=== PATIENT | female | born 1970 | race Caucasian/White ===

== ENCOUNTER 2021-04-20 14:07 | Emergency (ER) | payer MEDICARE, MEDICAID ==
[~2021-04-20] VITALS: Ht 165.1 cm; Wt 116.5 kg
[2021-04-20] MEDS ORDERED: ATOR40TA75 (14:43)
[2021-04-20] MEDS ORDERED: DULO1CAP6 (14:43)
[2021-04-20] MEDS ORDERED: TOPI100T9 (14:43)
[2021-04-20] MEDS ORDERED: LORA-674 (14:43)
[2021-04-20] MEDS ORDERED: CYCL-707 (14:43)
[2021-04-20] MEDS ORDERED: BASA100I (14:43)
[2021-04-20] MEDS ORDERED: PREG75CA2 (14:43)
[2021-04-20] MEDS ORDERED: METH-1164 (14:43)
[2021-04-20] MEDS ORDERED: LEVO50TA5 (14:43)
[2021-04-20] MEDS ORDERED: HYDR-3363 (14:43)
[2021-04-20] MEDS ORDERED: METF10004 (14:43)
--- OUTSIDE RECORDS SUMMARY | 2021-04-20 17:01 | CCD | Summary of Care ---
Author Author [facility] Organization [facility] Address Unknown Phone Unavailable Care Team Providers Care [employer] Fin[employer] Supervisor Name Role Phone Dilia Martínez PCP Reason for Referral * Consultation (Routine) Referred By Contact Referred To Contact Status Reason Specialty Diagnoses / Procedures Leslie Steen MD [address] [place] [phone] Email: [email or web address] Open Specialty Services Cardiology Diagnoses Required Bariatric surgery status Morbid obesity Hyperlipidemia, unspecified hyperlipidemia type LORENZO (obstructive sleep apnea) Electronically signed by Leslie Steen MD at Reason for Visit * Reason Comments Obesity Encounter Details Care Team Description Date Type Department Leslie Steen MD [address] [place] [id number] Bariatric surgery status (Primary Dx); Morbid obesity; BMI 40.0-44.9, adult; Uncontrolled type 2 diabetes mellitus with hyperglycemia; Hyperlipidemia, unspecified hyperlipidemia type; Osteoarthritis, unspecified osteoarthritis type, unspecified site; Fibromyalgia; Depression, unspecified depression type; Hypothyroidism, acquired; Vitamin D deficiency; LORENZO (obstructive sleep apnea) 02/05/2021 Telemedicine [facility] at [address] [phone] Allergies Comments Active Allergy Reactions Severity Noted Date Acetaminophen Hives 05/23/2019 Arm swelled up; patient states it is either pneumovax vaccine or the flu shot- not sure which because she had them both in the same arm. Also states she cannot have covid vaccine due to this per her MD. Influenza A (H1n1) 06/02/2020 Monovalent Vaccine Nausea Insulin Degludec Other (See 05/23/2019 Comments) R/t dexter surgery Nsaids 02/04/2021 Penicillins Hives 05/23/2019 documented as of this encounter (statuses as of 02/05/2021) Medications End Date Status Medication Sig Dispensed Refills Start Date Active Topiramate 100 MG Oral TAKE TWO 0 02 Tablet (TOPAMAX) TABLETS BY 0 MOUTH TWICE A DAY Active Levothyroxine Sodium 50 50 mcg every 0 MCG Oral Tablet morning 0 (SYNTHROID) before breakfast Active Atorvastatin Calcium 40 0 MG Oral Tablet (LIPITOR) 0 Active DULoxetine HCl 60 MG Oral Take 60 mg by 0 12/26 Capsule Delayed Release mouth daily 0 Particles (CYMBALTA) Active metFORMIN HCl 1000 MG 1,000 mg Two 0 01/23/20 2 Oral Tablet (GLUCOPHAGE) times daily 0 with meals Active BD Pen Needle Short U/F Use as 0 31G X 8 MM directed. 0 Active Basaglar KwikPen 100 45 Units 0 UNIT/ML Subcutaneous nightly 0 Solution Pen-injector Active Lisinopril 5 MG Oral Take 5 mg by 0 Tablet (PRINIVIL,ZESTRIL) mouth daily Active BD Assure BPM/Auto Arm Electronic 0 02 Cuff BP, one cuff 0 for daily BP readings Active Dexcom G6 Senior Devops Engineer Device 1 Device by 0 Does not 1 apply route Active hydrOXYzine HCl 25 MG every 8 0 09/03/19 2 Oral Tablet (ATARAX) (eight) hours 1 as needed for Anxiety Active Aspercreme Lidocaine 4 % PLACE 1 PATCH 0 03/11 External Patch ONTO THE SKIN 0 DAILY REMOVE AND DISCARD PATCH WITHIN 12 HOURS OR DIRECTED BY MD Active Loratadine 10 MG Oral every evening 0 09/16/19 2 Tablet (CLARITIN) 1 Active Methocarbamol 500 MG Oral Take 1,000 mg 0 08/25 Tablet (ROBAXIN) by mouth 1 nightly Active Misc. Devices Shower chair 0 to be used 1 daily to shower. Dx: 42 Active Tab-A-Satish/Beta Carotene Take 1 tablet 0 Oral Tablet by mouth daily Active Pregabalin 75 MG Oral Take 75 mg by 0 Capsule (LYRICA) mouth every evening Active UNABLE TO FIND Med Name: CBD 0 gummies, no THC Active UNABLE TO FIND Apply 0 topically as needed Med Name: Aspercreme topical - lidocaine is one ingredient for fibromyalgia pain Active Menthol, Topical Apply 0 Analgesic, (BIOFREEZE topically as ROLL-ON COLORLESS EX) needed (for fibromyalgia) 05/06/2021 Active Vitamin D Take 5 450 capsule 0 (Cholecalciferol) 25 MCG capsules by 1 (1000 UT) Oral Capsule mouth daily documented as of this encounter (statuses as of 02/05/2021) Active Problems Problem Noted Date Sleep-related breathing disorder 12/15/2020 Hypothyroidism, acquired 11/20/2019 Primary osteoarthritis involving multiple joints 08/2019 Anxiety 05/23/2019 Depression 05/23/2019 Hyperlipidemia 05/23/2019 Intractable migraine without aura and without status migrainosus 05/23/2019 Diabetes type 2, uncontrolled 08/11/2011 Migraines 08/11/2011 documented as of this encounter (statuses as of 02/05/2021) Immunizations Name Administration Dates Next Due documented as of this encounter Social History Date Tobacco Use Types Packs/Day Years Used Never Smoker Smokeless Tobacco: Never Used Comments Alcohol Use Standard Drinks/Week social,once a month or less, 2 beers Yes 0 (1 standard drink = 0.6 o z pure alcohol) Sex Assigned at Date Recorded Not on file Date Recorded COVID-19 Exposure Response 01/29/2021 8:17 AM EDT In the last month, have you been in contact with No / Unsure someone who was confirmed or suspected to have Coronavirus / COVID-19? documented as of this encounter Last Filed Vital Signs Reading Time Taken Comments Vital Sign - - Blood Pressure - - Pulse - - Temperature - - Respiratory Rate - - Oxygen Saturation - - Inhaled Oxygen Concentration 117 kg (258 lb) 02/04/2021 1:55 PM EDT Weight 165.1 cm (5' 5") 02/04/2021 1:55 PM EDT Height 42.93 02/04/2021 1:55 PM EDT Body Mass Index documented in this encounter Progress Notes * Leslie Steen MD - 02/05/2021 2:00 PM EDT BARIATRIC SURGERY FOLLOW-UP CLINIC NOTE CHIEF COMPLAINT: Visit #3 for medical supervised weight loss HISTORY OF PRESENT ILLNESS: The patient is a 50 year-old female who presents to continue the evaluation process for bariatric and metabolic surgery. Her last vi sit was on 12/23 and she has been in our bariatric program since September 2020. Her mother and two sisters had bariatric surgery (RYGB- Mom, Sisters- Sleeve). Since her last visit, she has undergone a HSAT and diagnosed with moderate LORENZO. She is pending a CPAP fitting. She also had her Psych evaluation at [facility] on 01/12 and deemed an excellent candidate for surgery. She is interested in having the RYGB over the Sleeve Gastrectomy. She is working on better glucose control and lowering her HgbA1c. She is scheduled with an End ocrinologist at the [facility] in June. She lives alone and has a home hea lth aid for >25 hours per week as she has difficulties remembering to take her meds or check her BG. She recently fired the home health aid and is trying to hire another one (memory issues, taking her pills, foot care). She has not been checking her glucose regularly at home but states they have all been >200. In regards to weight loss, she lost about 3 lbs since last month. RD appt today (JS) at 1330. Started walking in the evenings now with nice weathe r. Today's weight: 258 lbs Last visit: 261 lbs Initial weight: 261 lbs Pre-op goal weight loss: 20% EBW or 20 lbs Insurance:Vick PCP:Dilia Martínez Pre-operative weight loss goal:20% EBW [id number] Initial Weight: 261 lb Initial BMI: 43.50 Labs (14) - 12/19/20 scanned in from [facility]- Labs 12/15/20: HgbA1C 11.0, Gluc 363, Triglycerides 216, HDL 35, normal TSH, norm al CMP UA: 3+LE, neg nitrites, neg bacteria Pt has a A1C johny in feb 2021 Dm changes: Pt's insulin is now in the morning as pt was not doing it at all as pt was forgetting at night. Serum Phan - Smoking Status Never Smoker Smokeless Tobacco Status Never Used UA -12/19/20 EKG-11/28/20 ST- HR 102 LMN -12/04/20 Psych Eval -01/12/21 Br Path, Excellent candidate Sonia Padron -Dr. Mccallum 12/15/20, sleep study ordered Sleep St -home sleep study 01/13/21. Mod LORENZO, Pt is getting set up with a CPAP CPAP Comp -need, pt aware EGD/H.pylori -after cpap report. SG -johny 02/16/21 [place] -needs PCP Cl - ([id number]) request placed when surgery is ordered, needs H&P (PT,PTT,CBC w/ diff, CMP, U/A,Type&Screen)-needs Video-pt did watch ) NSAID's/Smoking/ETOH/Steroids-pt education done possible ulcer/perf risk _X__ Referral/Clearances: Cancer screening- ejfamihptd-oq-yovi mammogram- pt can schedule "No t a problem" and colonoscopy- pt will ask PCP in feb to order Pulm - Cards - Gasrto - Nephro - Hemat - Rheum -I do not see a ref placed yet it is on the case planner; see Pinky tele en counter (10/31). Per pt this will be set up closer to surgery date (per JK) Neuro - Endocr -referral placed last visit - goal HgbA1c <8Per ref tab 11/04/20 :Spoke to patient to schedule sent research programmer packet, appointment with Dr. Shanique Torres scheduled 07/15/21,most recent HgbA1c 11 wi random glucose 363,goal HgbA1c 8 or less Other- Medical history: -HLD - on 40mg Atorvastatin -DM - Metformin, Insulin-tunltkysz42brfng nightly. Been on insulin for 3 yea rs.(last HgbA1c 11 in August 2020) -Osteoarthritis/DJD -Hypothyroidism - synthroid -Depression/Anxiety -Migraines - Topamax -Fibromyalgia/Polyarthralgia - sees Dr. Wilkes (Rheumatology) -Low back, neckand hip pain: uses Tens unit, takes Naproxen every night and takes CBD gummies to relax and help her sleep -Tylenol allergy: rash -Denies GERD symptoms Significant surgical history: -Carpal tunnel -Right knee, right wrist surgery Patient Active Problem List Diagnosis Anxiety Depression Diabetes type 2, uncontrolled Hyperlipidemia Hypothyroidism, acquired Intractable migraine without aura and without status migrainosus Migraines Primary osteoarthritis involving multiple joints Sleep-related breathing disorder Current Outpatient Medications: Aspercreme Lidocaine 4 % External Patch, PLACE 1 PATCH ONTO THE SKIN LISE LY REMOVE AND DISCARD PATCH WITHIN 12 HOURS OR DIRECTED BY MD, Disp: , Rfl: Atorvastatin Calcium 40 MG Oral Tablet (LIPITOR), , Disp: , Rfl: Basaglar KwikPen 100 UNIT/ML Subcutaneous Solution Pen-injector, 45 Unit s nightly , Disp: , Rfl: BD Assure BPM/Auto Arm Cuff, Electronic BP, one cuff for daily BP readin gs, Disp: , Rfl: BD Pen Needle Short U/F 31G X 8 MM, Use as directed., Disp: , Rfl: DULoxetine HCl 60 MG Oral Capsule Delayed Release Particles (CYMBALTA), Take 60 mg by mouth daily, Disp: , Rfl: hydrOXYzine HCl 25 MG Oral Tablet (ATARAX), every 8 (eight) hours as nee ded for Anxiety, Disp: , Rfl: Levothyroxine Sodium 50 MCG Oral Tablet (SYNTHROID), 50 mcg every mornin g before breakfast , Disp: , Rfl: Lisinopril 5 MG Oral Tablet (PRINIVIL,ZESTRIL), Take 5 mg by mouth daily , Disp: , Rfl: Loratadine 10 MG Oral Tablet (CLARITIN), every evening , Disp: , Rfl: Menthol, Topical Analgesic, (BIOFREEZE ROLL-ON COLORLESS EX), Apply topi donte as needed (for fibromyalgia), Disp: , Rfl: metFORMIN HCl 1000 MG Oral Tablet (GLUCOPHAGE), 1,000 mg Two times daily with meals , Disp: , Rfl: Methocarbamol 500 MG Oral Tablet (ROBAXIN), Take 1,000 mg by mouth night ly , Disp: , Rfl: Pregabalin 75 MG Oral Capsule (LYRICA), Take 75 mg by mouth every evenin g , Disp: , Rfl: Tab-A-Satish/Beta Carotene Oral Tablet, Take 1 tablet by mouth daily, Disp : , Rfl: Topiramate 100 MG Oral Tablet (TOPAMAX), TAKE TWO TABLETS BY MOUTH TWICE A DAY, Disp: , Rfl: UNABLE TO FIND, Med Name: CBD gummies, no THC, Disp: , Rfl: UNABLE TO FIND, Apply topically as needed Med Name: Aspercreme topical - lidocaine is one ingredient for fibromyalgia pain, Disp: , Rfl: Dexcom G6 Senior Devops Engineer Device, 1 Device by Does not apply route (Patient not taking: Reported on 12/23/2020), Disp: , Rfl: Misc. Devices, Shower chair to be used daily to shower. Dx: 42 (Patient not taking: Reported on 12/23/2020), Disp: , Rfl: Past Medical History: Diagnosis Date Diabetes mellitus Hypertension Neuromuscular disorder fibromyalgia per patient Thyroid disease Past Surgical History: Procedure Laterality Date CARPAL TUNNEL DECOMPRESSION right knee surgery Family History Problem Relation Age of Onset Arthritis Mother Sleep apnea Mother Arthritis Maternal Grandmother Social History Socioeconomic History Marital status: Legally Spouse name: Not on file Number of children: Not on file Years of education: Not on file Highest education level: Not on file Occupational History Not on file Tobacco Use Smoking status: Never Smoker Smokeless tobacco: Never Used Vaping Use Vaping Use: Never used Substance and Sexual Activity Alcohol use: Yes Comment: social,once a month or less, 2 beers Drug use: Not Currently Comment: CBD gummies occassionally Sexual activity: Not on file Other Topics Concern Not on file Social History Narrative Not on file Social Determinants of Health Financial Resource Strain: Difficulty of Paying Living Expenses: Food Insecurity: Worried About Running Out of Food in the Last Year: Ran Out of Food in the Last Year: Transportation Needs: Lack of Transportation (Medical): Lack of Transportation (Non-Medical): Physical Activity: Days of Exercise per Week: Minutes of Exercise per Session: Stress: Feeling of Stress : Social Connections: Frequency of Communication with Friends and Family: Frequency of Social Gatherings with Friends and Family: Attends [employer] Services: Active Member of Clubs or Organizations: Attends Club or Organization Meetings: Marital Status: Intimate Partner Violence: Fear of Current or Ex-Partner: Emotionally Abused: Physically Abused: Sexually Abused: REVIEW OF SYSTEMS: [Option: Pertinent items are noted in HPI. ] GENERAL: Denies fevers, chills or malaise. SKIN: Denies new rashes, sores. HEAD: Denies new headache, migraine. EYES: Denies any vision change, diploplia. RESPIRATORY: Denies cough, sputum, hemoptysis. CARDIAC: Denies chest pain, palpitations, dyspnea, orthopnea. GI: Denies nausea, vomiting, vomiting of blood, change in bowel habits. URINARY: Denies polyuria, dysuria, nocturia, hesitancy. MS: Denies new back pain or other joint pain. PHYSICAL EXAMINATION: Visit Vitals Ht 1.651 m (5' 5") Wt 117 kg (258 lb) BMI 42.93 kg/m Body surface area is 2.32 meters squared. Last Recorded Weight 02/04/21 117 kg (258 lb) 12/23/20 118.7 kg (261 lb 9.3 oz) 12/23/20 118.7 kg (261 lb 9.3 oz) Unable to perform complete physical exam due to telehealth visit Vit D 27 B12, B1 folate, ferritin wnl Iron studies wnl PTH 8 ASSESSMENT/PLAN: Ms. Gregory is a pleasant 50 yo lady who presents to the clinic today to fredy montes the evaluation for possible weight loss surgery. The patient has a history of morbid obesity and other comorbidities listed in Problem List. The BMI is 42. 9 making the patient a good candidate. The patient feels that they have tried t heir best on their own with diet programs and medically-supervised diets in the past without much success. Therefore, the patient wishes to proceed with the rivers rgical route. The patient is interested in RYGB due to her poorly-controlled IDDM. The concern I have is her poor memory and dependence on a home health aide to stay compliant with medications and checking her blood glucose. In order to continueherevaluation to see if they are a suitable candidat e for surgery, we willcompletethe following studies and consults: 1) Routine labs- completed 11/2020 and reviewed, Vit D 5000units daily order ed today 2) EGD (to assess for occult gastroesophageal disease, including severity of NANCY D)- will schedule after cardiology evaluation and CPAP fitting 3) Dietaryvisits- continue monthly visits 4) Psychology evaluation (for education and assessment of readiness for surgery) - completed 01/12 by excellent Arron candidate 5) EKG reviewed - HR 102 sinus rhythm, T wave changes. Will place cardiology ref erral today 6) Pulmonologyevaluation - SS completed 01/13 - moderate LORENZO, pending CPAP fi tting 7)Endocrinology referral scheduled for 06/2021 - most recent HgbA1c 11 with random glucose 363, goal HgbA1c 8 or less. A1c lab ordered by PCP for 03/12/2021 8) Cancer screening- will need up-to-date mammogram 8) Letter of medical necessity from PCP The current diet and exercise regimens were reviewed in clinic, including protei n and average fluid intake. Recommendations for continued safe weight loss, hea lth and nutrition were discussed in detail. The patient was encouraged to contin ue diversifying the diet and to maintain and expand the exercise program. Specif ically: 1. Consume 3 protein-based meals, focus on lean proteins with goal 80-100g per d ay 2. Measure portions, decrease carbohydrate consumption and increase fiber/veg in take 3. Encouraged increased sugar-free water intake, at least 64oz per day 4. Stay accountable with calorie tracking - either food journal or olga ([email or web address], Clear Standards) 5. Increase activity level to minimum 30 minutes of moderate exercise 5x per anila vela A return appointment will be scheduled in 1 month with our OLGA and RD for her ne xt medical weight loss visit. Patient is encouraged to call the clinic with any questions or concerns. Patient demonstrates understanding, is amenable to the outlined plan, and there were no barriers to education today. This is a tele-medical visit. The patient was informed of the risks including se curity breach, technological failure, inability to perform a comprehensive physi geo exam which could delay or prevent an accurate diagnosis, and potential compl ications from treatment decisions rendered over a telemedical platform. The turner ent understands and consented to the use of tele-health services. The service was provided by means of an audio/video telecommunication. Time spent on this evaluation today: 30 minutes LESLIE STEEN MD Bariatric and Minimally Invasive Surgery [address], Physician's Office [facility], [address] [place] [address] Pager: [phone] documented in this encounter Nursing Notes * Aleta Nath, RN - 02/05/2021 2:00 PM EDT Intends:interested inSleeve Gastrectomy Sleeve Gastrectomyover theRYGB. I thinktheRYGBmay be the bet ter option for herif she is able to continue abstaining from NSAID usefo r her back, neck, and hip paindue to her poorly controlled IDDM. As of 02/04/21 pt is interested in the rny. Since October 2020 pt has used nsaids 3 t imes. Pt lives alone and is wondering about care after surgery at home. Pt has a a aid 28 hrs a week as of now. Insurance:Vick PCP:Dilia Martínez Pre-operative weight loss goal:20% EBW [id number] Initial Weight: 261 lb Initial BMI: 43.50 Labs (14) - 12/19/20 scanned in from [facility]- Labs 12/15/20: HgbA1C 11.0, Gluc 363, Triglycerides 216, HDL 35, normal TSH, norm al CMP UA: 3+LE, neg nitrites, neg bacteria Pt has a A1C johny in feb 2021 Dm changes: Pt's insulin is now in the morning as pt was not doing it at all as pt was forgetting at night. Serum Phan - Smoking Status Never Smoker Smokeless Tobacco Status Never Used UA -12/19/20 EKG-11/28/20 ST- want card cl? LMN -12/04/20 Psych Eval - 01/12/21 Br Path, Excellent candidate Sonia Padron -Dr. Mccallum 12/15/20, sleep study ordered Sleep St -home sleep study 01/13/21. Mod LORENZO, Pt is getting set up with a CPAP CPAP Comp -need, pt aware EGD/H.pylori -after cpap report. SG - johny 02/16/21 [place] -needs PCP Cl - ([id number]) request placed when surgery is ordered, needs H&P (PT,PTT,CBC w/ diff, CMP, U/A,Type&Screen)-needs Video-pt did watch ) NSAID's/Smoking/ETOH/Steroids-pt education done possible ulcer/perf risk _X__ Referral/Clearances: Cancer screening- vdpifkafsd-zh-bzzz mammogram- pt can schedule "No t a problem" and colonoscopy- pt was not aware this was need - pt will ask PCP in feb to or kobi Pulm - Cards - Gasrto - Nephro - Hemat - Rheum -I do not see a ref placed yet it is on the case planner; see Pinky tele en counter (10/31). Per pt this will be set up closer to surgery date (per JK) Neuro - Endocr -referral placed today - goal HgbA1c <9Per ref tab 11/04/20 :Spoke to patient to schedule sent research programmer packet, appointment with Dr. Shanique Torres scheduled 07/15/21, most recent HgbA1c 11 with random glucose 363,goal HgbA1c 8 or less Other- The patient reports the following medical conditions: -HTN - on Lisinopril -HLD - on 40mg Atorvastatin -DM - Metformin, Insulin-zzqqbwgoz71qewzv nightly. Been on insulin for 3 yea rs.(last HgbA1c 11 in August 2020) -Osteoarthritis/DJD -Hypothyroidism - synthroid -Depression/Anxiety -Migraines - Topamax -Fibromyalgia/Polyarthralgia - sees Dr. Wilkes (Rheumatology) -Low back, neckand hip pain: uses Tens unit, takes Naproxen every night and takes CBD gummies to relax and help her sleep -Tylenol allergy: rash -Denies GERD symptoms Significant surgical history: -Carpal tunnel -Right knee, right wrist surgery documented in this encounter Plan of Treatment Care Team Description Date Type Specialty 02/16/2021 Telemedicine Surgery Leslie Steen MD [address] [phone] Shanique Torres MD [address] [place] [address] 07/15/2021 Office Visit Endocrinology Order Schedule Name Type Priority Associated Diag noses Ordered: 02/05/2021 Referral to Cardiology Outpatient Routine Bariatr ic surgery status Referral Morbid obesity Hyperlipidemia, unspecified hyperlipidemia type LORENZO (obstructive sleep apnea) Health Maintenance Due Date Last Done Comments MMR Vaccines (1 of - 11/03/1972 Standard series) Varicella Vaccines ( of 11/03/1972 2 - 2-dose childhood series) Pneumococcal Vaccine: 65+ 11/03/1977 Years (1 of 2 - PPSV23) Pneumococcal Vaccine: 11/03/1977 Pediatrics (0 to 5 Years) and At-Risk Patients (6 to 64 Years) (1 of 2 - PPSV23) DTaP,Tdap,and Td Vaccines 11/03/1978 (1 - Tdap) HIV Screening 11/03/1984 Diabetic Foot Exam 11/03/1989 Dilated Retinal Exam 11/03/1989 Urine Microalbumin 11/03/1989 Hepatitis B Vaccines (1 11/03/1990 of 3 - Risk 3-dose series) Influenza Vaccine 03/27/2021 Hemoglobin A1c 06/03/2021 12/02/2020, 11/28/2020, 09/02/2020, Additional history exists Lipid Disorder Screening 12/02/2021 12/02/2020, 06/02/2020, 02/29/2020, Additional history exists Cervical Cancer Screening 12/18/2024 12/19/2019 5 years COVID-19 Vaccine Completed 12/05/2020 HIB Vaccines Aged Out No longer eligible based on patient's age to complete this topic Hepatitis A Vaccines Aged Out No longer eligibl e based on patient's age to complete this topic IPV Vaccines Aged Out No longer eligible based on patient's age to complete this topic documented as of this encounter Results Not on filedocumented in this encounter Visit Diagnoses Diagnosis Bariatric surgery status - Primary Morbid obesity BMI 40.0-44.9, adult Body Mass Index 40.0-44.9, adult Uncontrolled type 2 diabetes mellitus w ith hyperglycemia Hyperlipidemia, unspecified hyperlipide colby type Osteoarthritis, unspecified osteoarthri tis type, unspecified site Fibromyalgia Mylagia and myositis, unspecified Depression, unspecified depression type Hypothyroidism, acquired Unspecified hypothyroidism Vitamin D deficiency Unspecified vitamin D deficiency LORENZO (obstructive sleep apnea) Obstructive sleep apnea (adult) (pediat pranav) documented in this encounter
[2021-04-20 17:57] VITALS: BP 110/79
== END 2021-04-20 18:00 | disposition home or self-care (01) ==
LOC: M ED 14:07
DX: R53.81 Other malaise (principal); E11.65 Type 2 diabetes mellitus with hyperglycemia; I10 Essential (primary) hypertension; Z86.16 Personal history of COVID-19; E66.9 Obesity, unspecified; G47.33 Obstructive sleep apnea (adult) (pediatric); E03.9 Hypothyroidism, unspecified; Z79.4 Long term (current) use of insulin; Z79.890 Hormone replacement therapy; Z79.899 Other long term (current) drug therapy; Z88.0 Allergy status to penicillin; Z88.8 Allergy status to other drugs, medicaments and biological substances